=== PATIENT | female | born 1980 | race Caucasian/White ===

== ENCOUNTER 2020-10-25 18:40 | Emergency (ER) | payer OTHER, SELFPAY ==
[2020-10-25 18:42] VITALS: BP 162/88; PULSE 109; RESP 14; TEMP 36.7; O2SAT 99; BMI 35.6
--- NOTE | 2020-10-25 18:45 | ED.GENADULT ---
HPI - General Adult General Chief complaint: Recheck/Abnormal Lab/Rx Stated complaint: potassium levels at 124 Time Seen by Provider: 10/25/20 18:42 Source: patient and family Mode of arrival: Ambulatory Limitations: no limitations History of Present Illness HPI narrative: This is a 40-year-old female who comes in with complaint of a ?potassium level at 124.? patient states she started having dizziness several days ago, she did have fall. She denies any major injuries. She denies headache or vision changes. She denies any chest pain or new shortness of breath. She has had some nausea, she denies any vomiting. She denies any diarrhea or constipation. She denies any recent frequency, dysuria urgency but did have urinary symptoms in August. She states that her dizziness felt like vertigo. She felt like the room was spinning. It has been slowly improving. She states she had several falls. Patient states she has had vertigo symptoms 2 or 3 times in the past remotely. She does have a history of depression, PTSD, chronic weakness and pain in her right foot from an injury. Patient has not had any new medication changes. She states she has had appendectomy prior. Denies tobacco, alcohol or illicit. She is accompanied by her mother. Dr. Billingsley was her primary care. Related Data Home Medications Medication Instructions Recorded Confirmed carisoprodol 350 mg PO QDAY #0 05/31/13 famotidine [Pepcid] 20 mg PO QDAY #0 05/31/13 hydrocodone-acetaminophen [[place]] 1 tab PO PRN PRN #0 05/31/13 levonorgestrel-ethinyl estrad 1 tab PO QDAY #0 tab 05/31/13 [Levora-28] lorazepam 0.5 mg PO PRN PRN #0 05/31/13 zolpidem 10 mg PO HS #0 tab 05/31/13 Allergies Allergy/AdvReac Type Severity Reaction Status Date / Time ibuprofen Allergy Unknown Verified 10/25/20 18:49 Sulfa (Sulfonamide Allergy Unknown Verified 10/25/20 18:49 Antibiotics) Review of Systems Review of Systems ROS Unobtainable: All systems reviewed & are unremarkable except as noted in HPI and below Patient History Social History Smoking Status: Never smoker Smoking Status: Never smoker Substance Use Type: does not use Exam Narrative Exam Narrative: GEN: well nourished, well appearing female, alert and oriented x 3, patient appears to be in mild distress. HEENT: Atraumatic, pupils are equal round reactive to light, extraocular movements are intact, no facial droop. HEART: Regular rate and rhythm without murmur, clicks, rubs. Pulses are equal in upper and lower extremities LUNGS:Lungs clear to auscultation, no wheezes, rales, crackles, chest moves symmetrically ABD:bowel sounds normal, soft, non-tender, no guarding, rebound, rigidity, no masses noted, no hepatosplenomegaly :No CVA tenderness MSCL: Non-tender, no muscle atrophy, muscles strength 5/5 upper and lower extremities, full range of motion NEURO:CN 2-12 intact, sensation normal. Normal speech. SKIN: No rash, erythema or skin changes noted. Initial Vital Signs Initial Vital Signs: Vital Signs Temperature 98.1 F 10/25/20 18:42 Pulse Rate 109 H 10/25/20 18:42 Respiratory Rate 14 10/25/20 18:42 Blood Pressure 162/88 H 10/25/20 18:42 Pulse Oximetry 99 10/25/20 18:42 Scores GCS [place] coma scale eye opening: Spontaneous [place] coma scale verbal response: Orientated [place] coma scale motor response: Obey commands [place] coma scale total score: 15 Course Orders Ordered: Discontinued Medications Sodium Chloride (Normal Saline 0.9%) 1,000 mls @ 1,000 mls/hr IV BOLUS ONE Stop: 10/25/20 20:01 Last Infusion: 10/25/20 21:02 Dose: 0 mls/hr Documented by: Admin: 10/25/20 19:56 Dose: 1,000 mls/hr Documented by: BORA Vital Signs Vital signs: Vital Signs - 8 hr 10/25/20 18:42 10/25/20 19:17 10/25/20 19:30 Temperature 98.1 F Pulse Rate 109 H 95 H 95 H Respiratory Rate 14 Blood Pressure 162/88 H 134/72 Pulse Oximetry 99 98 98 Medical Decision Making Lab Data Lab results reviewed: Yes I reviewed the patient's lab results. Result diagrams: 10/25/20 18:51 10/25/20 18:51 Labs: Lab Results 10/25/20 10/25/20 10/25/20 Range/Units 18:51 18:51 18:51 WBC 11.4 H (4.5-11.0) X10^3/uL RBC 4.89 (4.0-5.2) X10^6/uL Hgb 14.3 (12.0-16.0) g/dL Hct 42.3 (36-46) % MCV 86.6 (80-100) fL MCH 29.3 (26-34) PG MCHC 33.8 (30-36) % RDW 14.1 (11.6-14.8) % Plt Count 431 H (150-400) X10^3/uL Neut % (Auto) 63.0 (50-75) % Lymph % (Auto) 28.9 (25-40) % [place] % (Auto) 6.4 (3-14) % Eos % (Auto) 1.3 L (2-4) % Baso % (Auto) 0.4 (0-2) % Neut # (Auto) 7200 H (0636-1372) /uL Lymph # (Auto) 3300 (4409-7564) /uL [place]bert # (Auto) 700 (0-900) /uL Eos # (Auto) 100 (0-450) /uL Baso # (Auto) 0 (0-100) /uL Sodium 130 L (137-145) mmol/L Potassium 4.5 (3.4-5.1) mmol/L Chloride 99 (98-107) mmol/L Carbon Dioxide 19 L (22-32) mmol/L BUN 6 L (7-17) mg/dL Creatinine 0.60 (0.52-1.04) mg/dL Estimated GFR > 60.0 (>60) mL/min BUN/Creatinine Ratio 10.0 (6-22) Glucose 92 (70-100) mg/dL Calcium 9.5 (8.4-10.2) mg/dL Total Bilirubin 0.5 (0.2-1.3) mg/dL AST 39 H (14-36) IU/L ALT 45 H (<35) IU/L Alkaline Phosphatase 79 (38-126) U/L Troponin I < 0.012 (0.01-0.034) ng/mL Total Protein 8.5 H (6.3-8.2) g/dL Albumin 5.1 H (3.5-5.0) g/dL Globulin 3.4 (1.7-4.1) g/dL Albumin/Globulin Ratio 1.5 (1.0-2.8) Lipase 33 (23-300) U/L Point of Care Testing Test Results Negative Urine Dip Bedside Urine Glucose Negative Bedside Urine Bilirubin - Negative Urine Specific [place] 1.010 Bedside Urine Occult Blood - Negative Bedside Urine pH 6 Bedside Urine Protein - Negative Bedside Urine Urobilinogen - Negative Bedside Urine Nitrite - Negative Bedside Urine Leukocytes - Negative Esterase Point of care testing: Point of Care Testing Test Results Negative Urine Dip Bedside Urine Glucose Negative Bedside Urine Bilirubin - Negative Urine Specific [place] 1.010 Bedside Urine Occult Blood - Negative Bedside Urine pH 6 Bedside Urine Protein - Negative Bedside Urine Urobilinogen - Negative Bedside Urine Nitrite - Negative Bedside Urine Leukocytes - Negative Esterase ECG Data Attestation: I personally reviewed and interpreted this ECG as follows: Prior ECG tracings: not available for review Interpretation: Sinus rhythm rate of 97 WI interval 152 QRS 86 and QTC of 431. No ST elevation depression appreciated. MDM Narrative Medical decision making narrative: This is a 40-year-old female comes in with complaint of vertigo which has been improving. She had labs drawn in her physician and was told that her level was 124 in terms of her potassium but I suspect that she misunderstood and it is her sodium level. Today it is 130. It was checked 2 days prior. She was slightly tachycardic. Her labs show mild elevation in LFTs. Patient is encouraged to hydrate properly. Follow up with her primary care as she is on multiple medications and these potentially could be affecting her sodium level. Patient plan for follow up this coming week and recheck of sodium level on Tuesday verify that is continuing to improve. Discharge Plan Departure Patient Disposition: Home Clinical Impression: Hyponatremia Activity Restrictions/Additional Instructions: Follow up with your physician for recheck. Your sodium level is low but improved from your prior of 124. It is 130 today. Included is lab order to have your sodium rechecked on Tuesday. Your vertigo symptoms early this week your likely associated with your sodium level being low. Continue with the current changes to your diet. It is possible your medications may be contributing to your sodium levels and I would follow up with your physician this week to re-evaluate your medications. Return to the ER for recurrent symptoms, lightheadedness or passing out, new chest pain or shortness of breath, new numbness, weakness or difficulty with movement, persistent vomiting, or other new or concerning symptoms. Prescriptions: No Action zolpidem 5 MG tablet 10 mg PO HS Qty: 0 RF: 0 carisoprodol 350 MG tablet 350 mg PO QDAY Qty: 0 RF: 0 lorazepam 0.5 MG tablet 0.5 mg PO PRN PRNQty: 0 RF: 0 levonorgestrel-ethinyl estrad [[place]ora-28] 1 EACH tablet 1 tab PO QDAY Qty: 0 RF: 0 famotidine [Pepcid] 20 MG tablet 20 mg PO QDAY Qty: 0 RF: 0 hydrocodone-acetaminophen [[place]] 7.5 MG/325 MG tablet 1 tab PO PRN PRNQty: 0 RF: 0
[2020-10-25 19:17] VITALS: PULSE 95; O2SAT 98
[2020-10-25 19:18] LABS: Add Manual Diff / Slide Review NO; Basophils Absolute Auto 0 /uL (0-100); Basophils Percent Auto 0.4 % (0-2); Eosinophils Absolute Auto 100 /uL (0-450); Eosinophils Percent Auto 1.3 % (2-4); Hematocrit 42.3 % (36-46); Hemoglobin 14.3 g/dL (12.0-16.0); Lymphocytes Absolute Auto 3300 /uL (1100-4500); Lymphocytes Percent Auto 28.9 % (25-40); Mean Corpuscular HGB Conc 33.8 % (30-36); Mean Corpuscular Hemoglobin 29.3 PG (26-34); Mean Corpuscular Volume 86.6 fL (80-100); Monocytes Absolute Auto 700 /uL (0-900); Monocytes Percent Auto 6.4 % (3-14); Neutrophils Absolute Auto 7200 /uL (1500-7000); Red Blood Cell Count 4.89 X10^6/uL (4.0-5.2); Red Cell Distribution Width 14.1 % (11.6-14.8); White Blood Cell Count 11.4 X10^3/uL (4.5-11.0)
[2020-10-25 19:22] LABS: Alanine Aminotransferase 45 IU/L (<35); Albumin 5.1 g/dL (3.5-5.0); Albumin Globulin Ratio 1.5 (1.0-2.8); Alkaline Phosphatase 79 U/L (38-126); Aspartate Aminotransferase 39 IU/L (14-36); Bilirubin Total 0.5 mg/dL (0.2-1.3); Blood Urea Nitrogen 6 mg/dL (7-17); Calcium 9.5 mg/dL (8.4-10.2); Carbon Dioxide 19 mmol/L (22-32); Chloride 99 mmol/L (98-107); Estimated Glomerular Filt Rate > 60.0 mL/min (>60); Globulin 3.4 g/dL (1.7-4.1); Glucose 92 mg/dL (70-100); Lipase 33 U/L (23-300); Potassium 4.5 mmol/L (3.4-5.1); Sodium 130 mmol/L (137-145); Total Protein 8.5 g/dL (6.3-8.2)
[2020-10-25 19:25] LABS: HEMOLYSIS 71 (0-50)
[2020-10-25 19:30] VITALS: BP 134/72; PULSE 95; O2SAT 98
[2020-10-25 19:34] LABS: Troponin I < 0.012 ng/mL (0.01-0.034)
[2020-10-25 19:45] LABS: Platelet Count 431 X10^3/uL (150-400)
[2020-10-25] MEDS: SODIUM CHLORIDE 0.9% 1,000 ML 1000 ML IV (19:56)
[2020-10-25 20:00] VITALS: BP 147/87; PULSE 93; O2SAT 99
[2020-10-25 20:30] VITALS: BP 151/79; PULSE 91; O2SAT 99
[2020-10-25 21:00] VITALS: BP 159/87; PULSE 82; O2SAT 100
== END 2020-10-25 21:10 | disposition home or self-care (01) ==
PROVIDERS: Emergency Provider Emergency Medicine
DX: E87.1 Hypo-osmolality and hyponatremia (principal); R00.0 Tachycardia, unspecified; R79.89 Other specified abnormal findings of blood chemistry
CPT/HCPCS: 36415; 80053; 81003; 81025; 83690; 84484; 85025; 93005; 96365; 99283; 99284